=== PATIENT | female | born 1930 | race Caucasian/White ===

== ENCOUNTER 2018-02-13 23:21 | Emergency (ER) | payer MEDICARE, OTHER ==
[~2018-02-13] VITALS: Ht 162.6 cm; Wt 63.6 kg
[2018-02-14 00:37] LABS: BASOPHILS % (AUTO) 0.5 % (0-1); EOSINOPHILS # (AUTO) 0.2 X10'3 (0-0.9); EOSINOPHILS % (AUTO) 2.8 % (0-6); HEMATOCRIT 30.2 % (35.0-45.0); HEMOGLOBIN 9.8 g/dl (12.0-16.0); LYMPHOCYTES # (AUTO) 1.9 X10'3 (1.1-4.8); LYMPHOCYTES % (AUTO) 32.1 % (21-51); MEAN CORPUSCULAR HEMOGLOBIN 28.5 PG (27.0-31.0); MEAN CORPUSCULAR HGB CONC 32.4 % (33.0-36.5); MEAN CORPUSCULAR VOLUME 87.9 FL (78-98); MEAN PLATELET VOLUME 6.9 FL (7.4-10.4); MONOCYTES # (AUTO) 0.6 X10'3 (0-0.9); MONOCYTES % (AUTO) 10.8 % (2-12); NEUTROPHILS # (AUTO) 3.1 X10'3 (1.8-7.7); NEUTROPHILS % (AUTO) 53.8 % (42-75); PLATELET COUNT 316 X10'3 (140-440); RED BLOOD COUNT 3.43 X10'6 (4.20-5.60); RED CELL DISTRIBUTION WIDTH 17.3 % (11.5-14.5); WHITE BLOOD COUNT 5.8 X10'3 (4.5-11.0)
[2018-02-14 00:53] LABS: ALANINE AMINOTRANSFERASE 17 U/L (12-78); ALBUMIN 3.1 G/DL (3.4-5.0); ALBUMIN/GLOBULIN RATIO 0.7 (1.1-1.5); ALKALINE PHOSPHATASE 83 IU/L (46-116); ANION GAP 10 (8-16); ASPARTATE AMINO TRANSFERASE 22 U/L (10-37); BILIRUBIN,TOTAL 0.6 MG/DL (0.1-1.0); BLOOD UREA NITROGEN 38 MG/DL (7-18); BUN/CREATININE RATIO 31.1 (6.6-38.0); CALCIUM 8.7 MG/DL (8.5-10.1); CHLORIDE 101 MMOL/L (99-107); CREATININE 1.22 MG/DL (0.40-0.90); GLUCOSE 83 MG/DL (70-104); POTASSIUM 3.8 MMOL/L (3.5-5.1); SODIUM 137 MMOL/L (135-145); TOTAL CARBON DIOXIDE 26.4 MMOL/L (24-32); TOTAL PROTEIN 7.4 G/DL (6.4-8.2); eGFR 42 ML/MIN
[2018-02-14 01:01] LABS: MAGNESIUM 1.7 MG/DL (1.5-2.4)
[2018-02-14] MEDS ORDERED: furosemide 10 MG/1 ML 10ml inj IV ONE (01:35)
[2018-02-14 04:59] VITALS: BP 157/97
== END 2018-02-14 05:01 | disposition home or self-care (01) ==
LOC: EDBD 23:22 → ER 23:22
DX: E87.70 Fluid overload, unspecified (principal); J44.9 Chronic obstructive pulmonary disease, unspecified; I25.10 Atherosclerotic heart disease of native coronary artery without angina pectoris; I48.91 Unspecified atrial fibrillation; I10 Essential (primary) hypertension; E03.9 Hypothyroidism, unspecified; E78.00 Pure hypercholesterolemia, unspecified; F03.90 Unspecified dementia, unspecified severity, without behavioral disturbance, psychotic disturbance, mood disturbance, and anxiety; G89.29 Other chronic pain; Z88.0 Allergy status to penicillin; Z88.2 Allergy status to sulfonamides; Z98.890 Other specified postprocedural states
CPT/HCPCS: 36415; 71045; 80053; 83735; 83880; 84484; 85025; 93005; 96374; 99285; J1940

== ENCOUNTER 2018-02-23 09:38 | Inpatient (IN) | payer MEDICARE, OTHER ==
[~2018-02-23] VITALS: Ht 162.6 cm; Wt 95.0 kg
[2018-02-23] MEDS ORDERED: normal saline 1000ML IV soln IVB ONE (09:45)
[2018-02-23 10:40] LABS: CLARITY,URINE CLOUDY (Clear); COLOR,URINE YELLOW (Yellow); GLUCOSE, URINE NEGATIVE (Neg); KETONES,URINE NEGATIVE (Neg); LEUKOCYTE ESTERASE ,URINE MODERATE (Neg); NITRITES, URINE NEGATIVE (Neg); OCCULT BLOOD,URINE NEGATIVE (Neg); PH,URINE 6.5 (4.8-8.0); PROTEIN,URINE TRACE mg/dl (Neg); UA COLLECTION TYPE CLN CATCH MIDSTREAM; UROBILINOGEN,URINE 0.2 E.U/dL (0.2-1.0)
[2018-02-23 10:46] LABS: BACTERIA,URINE 3+ /HPF (Neg); MUCUS STRANDS FEW /LPF (Neg); SQUAMOUS EPITHELIAL CELL,UR FEW /LPF (FEW); TRANSITIONAL EPI CELLS,URINE FEW /HPF
[2018-02-23 10:47] LABS: RBC,URINE 0-2 /HPF (0-2); RENAL CELLS, URINE FEW /HPF; WBC,URINE 0-4 /HPF (0-4)
[2018-02-23 11:17] LABS: BASOPHILS % (AUTO) 0.3 % (0-1); EOSINOPHILS # (AUTO) 0.1 X10'3 (0-0.9); EOSINOPHILS % (AUTO) 1.4 % (0-6); HEMATOCRIT 44.4 % (35.0-45.0); HEMOGLOBIN 14.5 g/dl (12.0-16.0); LYMPHOCYTES # (AUTO) 1.6 X10'3 (1.1-4.8); LYMPHOCYTES % (AUTO) 17.6 % (21-51); MEAN CORPUSCULAR HEMOGLOBIN 28.2 PG (27.0-31.0); MEAN CORPUSCULAR HGB CONC 32.7 % (33.0-36.5); MEAN CORPUSCULAR VOLUME 86.1 FL (78-98); MEAN PLATELET VOLUME 6.6 FL (7.4-10.4); MONOCYTES # (AUTO) 0.8 X10'3 (0-0.9); NEUTROPHILS # (AUTO) 6.7 X10'3 (1.8-7.7); NEUTROPHILS % (AUTO) 71.7 % (42-75); PLATELET COUNT 380 X10'3 (140-440); RED BLOOD COUNT 5.16 X10'6 (4.20-5.60); RED CELL DISTRIBUTION WIDTH 16.3 % (11.5-14.5); WHITE BLOOD COUNT 9.3 X10'3 (4.5-11.0)
[2018-02-23 11:40] LABS: ALANINE AMINOTRANSFERASE 21 U/L (12-78); ALBUMIN 3.5 G/DL (3.4-5.0); ALBUMIN/GLOBULIN RATIO 0.7 (1.1-1.5); ALKALINE PHOSPHATASE 102 IU/L (46-116); ANION GAP 7 (8-16); ASPARTATE AMINO TRANSFERASE 35 U/L (10-37); BILIRUBIN,TOTAL 0.8 MG/DL (0.1-1.0); BLOOD UREA NITROGEN 44 MG/DL (7-18); BUN/CREATININE RATIO 29.7 (6.6-38.0); CHLORIDE 82 MMOL/L (99-107); CREATININE 1.48 MG/DL (0.40-0.90); GLUCOSE 105 MG/DL (70-104); SODIUM 126 MMOL/L (135-145); TOTAL CARBON DIOXIDE 37.2 MMOL/L (24-32); TOTAL PROTEIN 8.5 G/DL (6.4-8.2); eGFR 33 ML/MIN
[2018-02-23 11:42] LABS: POTASSIUM 2.8 MMOL/L (3.5-5.1)
[2018-02-23] MEDS ORDERED: CefTRIAXone/D5W-Rocephin 1gm 50 ML IV ONE (11:50)
[2018-02-23] MEDS ORDERED: magnesium 2GM in 50ml NS 50 ML IV STA (11:50)
[2018-02-23] MEDS ORDERED: magnesium 2GM in 50ml NS 50 ML IV ONE (11:55)
[2018-02-23] MEDS ORDERED: potassium 10mEq/100ml NS w/LIDOcaine (10mg/bag) IV ONE (12:45)
[2018-02-23] MEDS ORDERED: magnesium Cl slow-release 64mg tablet PO PRN (13:00)
[2018-02-23] MEDS ORDERED: magnesium hydroxide 30ml (MOM) UD suspension PO PRN (13:00)
[2018-02-23] MEDS ORDERED: potassium Cl 20 mEq SR tablet PO PRN (13:00)
[2018-02-23] MEDS ORDERED: magnesium 4gm in 100ml NS 100 ML IV PRN (13:00)
[2018-02-23] MEDS ORDERED: potassium Cl 40MEQ/NS 500ml 500 ML IV PRN ×2 (13:00)
[2018-02-23] MEDS ORDERED: mag hydrox/Alum hydrox/simeth 30ml oral suspension PO PRN (13:00)
[2018-02-23] MEDS ORDERED: bisacodyl 10mg suppository rectal RC PRN (13:00)
[2018-02-23] MEDS ORDERED: ondansetron/PF 4mg/2ml inj IV PRN (13:00)
[2018-02-23] MEDS ORDERED: magnesium 2GM in 50ml NS 50 ML IV PRN (13:00)
[2018-02-23] MEDS ORDERED: acetaminophen 325mg tablet PO PRN (13:00)
[2018-02-23] MEDS: levoFLOXACIN-Levaquin 500mg/D5 100 ML IV SCH (13:56)
[2018-02-23 14:08] LABS: CREATINE KINASE 91 U/L (26-192)
[2018-02-23] MEDS: potassium Cl 20mEq in NS 1,000 ML IV SCH (14:29)
[2018-02-23 15:18] LABS: INR 1.1 INR; PARTIAL THROMBOPLASTIN TIME 27 SECONDS (22-32); PROTHROMBIN TIME 11.3 SECONDS (9.0-12.0)
[2018-02-23] MEDS ORDERED: FURO-150 PO (16:12)
[2018-02-23] MEDS ORDERED: POTA10TA PO (16:14)
[2018-02-23] MEDS ORDERED: ISOS30TA9 PO (16:15)
[2018-02-23] MEDS ORDERED: LISI-604 PO (16:15)
[2018-02-23] MEDS ORDERED: LEVO112T5 PO (16:16)
[2018-02-23] MEDS ORDERED: FAMO20TA8 PO (16:17)
[2018-02-23] MEDS ORDERED: CLOP75TA35 PO (16:18)
[2018-02-23] MEDS ORDERED: METO-467 PO (16:18)
[2018-02-23] MEDS ORDERED: ASPI-611 PO (16:19)
[2018-02-23] MEDS ORDERED: ATOR80TA PO (16:20)
[2018-02-23] MEDS ORDERED: MEMA5TAB PO (16:21)
[2018-02-23 20:00] VITALS: BP_SYST 100; BP_SYST 118; BP_SYST 134; BP_DIAS 44; BP_DIAS 59; BP_DIAS 61
[2018-02-23 20:40] VITALS: BP 118/61
[2018-02-23] MEDS: docusate sod 100mg capsule PO SCH (21:15)
[2018-02-23] MEDS: HYDROcodone/acetaminophen 5mg/325mg tablet PO PRN (21:15)
[2018-02-23] MEDS: heparin, porcine 5000 units/ml vial SQ SCH (21:15)
[2018-02-24] VITALS (7 sets, daily range): BP systolic 118–203; BP diastolic 52–86
[2018-02-24] LABS: POTASSIUM 2.8 MMOL/L (3.5-5.1)
[2018-02-24] MEDS: temazepam 15mg capsule PO PRN ×2 (00:55→21:21)
[2018-02-24] MEDS: potassium Cl 20mEq in NS 1,000 ML IV SCH ×3 (00:55→16:16)
[2018-02-24] MEDS ORDERED: potassium Cl 40MEQ/NS 500ml 500 ML IV ONE (01:14)
[2018-02-24] MEDS: HYDROcodone/acetaminophen 5mg/325mg tablet PO PRN ×2 (04:57→23:36)
[2018-02-24 05:45] LABS: BASOPHILS % (AUTO) 0.4 % (0-1); EOSINOPHILS # (AUTO) 0.4 X10'3 (0-0.9); EOSINOPHILS % (AUTO) 4.6 % (0-6); HEMOGLOBIN 11.7 g/dl (12.0-16.0); LYMPHOCYTES # (AUTO) 1.6 X10'3 (1.1-4.8); LYMPHOCYTES % (AUTO) 16.3 % (21-51); MEAN CORPUSCULAR HEMOGLOBIN 28.8 PG (27.0-31.0); MEAN CORPUSCULAR HGB CONC 33.4 % (33.0-36.5); MEAN CORPUSCULAR VOLUME 86.1 FL (78-98); MEAN PLATELET VOLUME 6.9 FL (7.4-10.4); MONOCYTES # (AUTO) 1.1 X10'3 (0-0.9); MONOCYTES % (AUTO) 11.2 % (2-12); NEUTROPHILS # (AUTO) 6.5 X10'3 (1.8-7.7); NEUTROPHILS % (AUTO) 67.5 % (42-75); PLATELET COUNT 316 X10'3 (140-440); RED BLOOD COUNT 4.06 X10'6 (4.20-5.60); WHITE BLOOD COUNT 9.6 X10'3 (4.5-11.0)
[2018-02-24 05:48] LABS: ALBUMIN 2.6 G/DL (3.4-5.0); ANION GAP 4 (8-16); BLOOD UREA NITROGEN 28 MG/DL (7-18); BUN/CREATININE RATIO 24.8 (6.6-38.0); CALCIUM 7.9 MG/DL (8.5-10.1); CHLORIDE 96 MMOL/L (99-107); CREATININE 1.13 MG/DL (0.40-0.90); GLUCOSE 95 MG/DL (70-104); MAGNESIUM 1.8 MG/DL (1.5-2.4); POTASSIUM 3.4 MMOL/L (3.5-5.1); SODIUM 134 MMOL/L (135-145); TOTAL CARBON DIOXIDE 34.3 MMOL/L (24-32); eGFR 45 ML/MIN
[2018-02-24] MEDS: docusate sod 100mg capsule PO SCH ×2 (07:26→21:21)
[2018-02-24] MEDS: levoFLOXACIN-Levaquin 500mg/D5 100 ML IV SCH (07:26)
[2018-02-24] MEDS: potassium Cl 20 mEq SR tablet PO PRN ×3 (07:27→21:21)
[2018-02-24] MEDS: heparin, porcine 5000 units/ml vial SQ SCH ×2 (07:27→21:20)
[2018-02-24] MEDS: K and/or MAG REPLACEMENT MC SCH (08:00)
[2018-02-24] MEDS: aspirin 325mg tablet, delayed-release (Ecotrin) PO SCH (17:39)
[2018-02-24] MEDS ORDERED: metoprolol tartrate 50mg tablet PO PRN (19:05)
[2018-02-24] MEDS: lactobacillus rhamnosus 10,000 MMU CELLS/CAPSULE PO SCH (21:21)
[2018-02-25] VITALS: BP 150/71
[2018-02-25] MEDS: potassium Cl 20mEq in NS 1,000 ML IV SCH ×2 (00:42→14:06)
[2018-02-25 05:28] LABS: BASOPHILS % (AUTO) 0.5 % (0-1); EOSINOPHILS # (AUTO) 0.5 X10'3 (0-0.9); EOSINOPHILS % (AUTO) 6.1 % (0-6); HEMATOCRIT 35.5 % (35.0-45.0); HEMOGLOBIN 11.8 g/dl (12.0-16.0); LYMPHOCYTES # (AUTO) 1.7 X10'3 (1.1-4.8); LYMPHOCYTES % (AUTO) 19.9 % (21-51); MEAN CORPUSCULAR HEMOGLOBIN 28.7 PG (27.0-31.0); MEAN CORPUSCULAR HGB CONC 33.1 % (33.0-36.5); MEAN CORPUSCULAR VOLUME 86.5 FL (78-98); MEAN PLATELET VOLUME 7.1 FL (7.4-10.4); MONOCYTES % (AUTO) 11.9 % (2-12); NEUTROPHILS # (AUTO) 5.2 X10'3 (1.8-7.7); NEUTROPHILS % (AUTO) 61.6 % (42-75); PLATELET COUNT 287 X10'3 (140-440); RED CELL DISTRIBUTION WIDTH 16.9 % (11.5-14.5); WHITE BLOOD COUNT 8.5 X10'3 (4.5-11.0)
[2018-02-25 06:03] LABS: ALBUMIN 2.6 G/DL (3.4-5.0); ANION GAP 5 (8-16); BLOOD UREA NITROGEN 16 MG/DL (7-18); CALCIUM 8.4 MG/DL (8.5-10.1); CHLORIDE 101 MMOL/L (99-107); CREATININE 0.89 MG/DL (0.40-0.90); GLUCOSE 89 MG/DL (70-104); MAGNESIUM 1.4 MG/DL (1.5-2.4); SODIUM 137 MMOL/L (135-145); TOTAL CARBON DIOXIDE 30.6 MMOL/L (24-32); eGFR 60 ML/MIN
[2018-02-25 07:00] VITALS: BP 187/86
[2018-02-25] MEDS: K and/or MAG REPLACEMENT MC SCH (08:00)
[2018-02-25] MEDS: lactobacillus rhamnosus 10,000 MMU CELLS/CAPSULE PO SCH ×2 (08:48→21:32)
[2018-02-25] MEDS: docusate sod 100mg capsule PO SCH ×2 (08:48→21:32)
[2018-02-25] MEDS: aspirin 325mg tablet, delayed-release (Ecotrin) PO SCH (08:48)
[2018-02-25] MEDS: heparin, porcine 5000 units/ml vial SQ SCH ×2 (08:48→21:32)
[2018-02-25] MEDS: CefTRIAXone/D5W-Rocephin 1gm 50 ML IV SCH (09:44)
[2018-02-25 11:00] VITALS: BP_SYST 151; BP_SYST 172; BP_SYST 178; BP_SYST 179; BP_DIAS 52; BP_DIAS 75; BP_DIAS 76; BP_DIAS 77
[2018-02-25] MEDS ORDERED: levoFLOXACIN 500mg tablet PO SCH (11:00)
[2018-02-25] MEDS: metoprolol tartrate 50mg tablet PO SCH ×2 (16:12→21:32)
[2018-02-25] MEDS: hydrALAZINE 20mg/ml inj. IV PRN (16:30)
[2018-02-25] MEDS: sodium chloride 0.45% 1,000 ML IV SCH (16:33)
[2018-02-25 18:00] VITALS: BP 126/64
[2018-02-25 20:00] VITALS: BP_SYST 118; BP_SYST 126; BP_SYST 133; BP_DIAS 59; BP_DIAS 62; BP_DIAS 64
[2018-02-25] MEDS: temazepam 15mg capsule PO PRN (21:32)
[2018-02-25] MEDS: HYDROcodone/acetaminophen 5mg/325mg tablet PO PRN (21:34)
[2018-02-26] VITALS: BP 132/70
[2018-02-26] MEDS: sodium chloride 0.45% 1,000 ML IV SCH ×2 (05:41→21:25)
[2018-02-26 05:51] LABS: BASOPHILS # (AUTO) 0.1 X10'3 (0-0.2); BASOPHILS % (AUTO) 0.8 % (0-1); EOSINOPHILS # (AUTO) 0.3 X10'3 (0-0.9); EOSINOPHILS % (AUTO) 3.6 % (0-6); HEMATOCRIT 35.7 % (35.0-45.0); HEMOGLOBIN 11.8 g/dl (12.0-16.0); LYMPHOCYTES # (AUTO) 2.1 X10'3 (1.1-4.8); MEAN CORPUSCULAR HEMOGLOBIN 28.3 PG (27.0-31.0); MEAN PLATELET VOLUME 7.2 FL (7.4-10.4); MONOCYTES # (AUTO) 0.9 X10'3 (0-0.9); MONOCYTES % (AUTO) 10.7 % (2-12); NEUTROPHILS # (AUTO) 5.2 X10'3 (1.8-7.7); NEUTROPHILS % (AUTO) 60.9 % (42-75); PLATELET COUNT 299 X10'3 (140-440); RED BLOOD COUNT 4.15 X10'6 (4.20-5.60); RED CELL DISTRIBUTION WIDTH 16.5 % (11.5-14.5); WHITE BLOOD COUNT 8.6 X10'3 (4.5-11.0)
[2018-02-26 06:02] LABS: ALBUMIN 2.5 G/DL (3.4-5.0); ANION GAP 6 (8-16); BLOOD UREA NITROGEN 11 MG/DL (7-18); BUN/CREATININE RATIO 12.9 (6.6-38.0); CALCIUM 8.3 MG/DL (8.5-10.1); CHLORIDE 97 MMOL/L (99-107); CREATININE 0.85 MG/DL (0.40-0.90); GLUCOSE 90 MG/DL (70-104); MAGNESIUM 1.2 MG/DL (1.5-2.4); SODIUM 131 MMOL/L (135-145); eGFR 63 ML/MIN
[2018-02-26 07:35] VITALS: BP 165/74
[2018-02-26 08:00] VITALS: BP_SYST 144; BP_SYST 153; BP_SYST 159; BP_DIAS 58; BP_DIAS 61; BP_DIAS 75
[2018-02-26] MEDS: K and/or MAG REPLACEMENT MC SCH (08:00)
[2018-02-26] MEDS: aspirin 325mg tablet, delayed-release (Ecotrin) PO SCH (09:37)
[2018-02-26] MEDS: CefTRIAXone/D5W-Rocephin 1gm 50 ML IV SCH (09:37)
[2018-02-26] MEDS: metoprolol tartrate 50mg tablet PO SCH ×2 (09:37→21:26)
[2018-02-26] MEDS: lactobacillus rhamnosus 10,000 MMU CELLS/CAPSULE PO SCH ×2 (09:37→21:26)
[2018-02-26] MEDS: docusate sod 100mg capsule PO SCH ×2 (09:37→21:26)
[2018-02-26] MEDS: heparin, porcine 5000 units/ml vial SQ SCH ×2 (09:38→21:26)
[2018-02-26 12:52] VITALS: BP 135/52
[2018-02-26 18:00] VITALS: BP 133/52
[2018-02-26 20:00] VITALS: BP_SYST 132; BP_SYST 143; BP_SYST 158; BP_DIAS 60; BP_DIAS 63; BP_DIAS 85
[2018-02-26] MEDS ORDERED: potassium Cl 40MEQ/NS 500ml 500 ML IV PRN ×2 (23:20)
[2018-02-26] MEDS ORDERED: magnesium 2GM in 50ml NS 50 ML IV PRN (23:20)
[2018-02-26] MEDS ORDERED: potassium Cl 20 mEq SR tablet PO PRN ×2 (23:20)
[2018-02-26] MEDS ORDERED: magnesium 4gm in 100ml NS 100 ML IV PRN (23:20)
[2018-02-26] MEDS: magnesium Cl slow-release 64mg tablet PO PRN (23:57)
[2018-02-27] VITALS: BP 143/63
[2018-02-27 05:39] LABS: BASOPHILS % (AUTO) 0.5 % (0-1); EOSINOPHILS # (AUTO) 0.3 X10'3 (0-0.9); HEMATOCRIT 36.3 % (35.0-45.0); LYMPHOCYTES # (AUTO) 2.6 X10'3 (1.1-4.8); LYMPHOCYTES % (AUTO) 30.5 % (21-51); MEAN CORPUSCULAR HEMOGLOBIN 28.5 PG (27.0-31.0); MEAN CORPUSCULAR VOLUME 86.2 FL (78-98); MEAN PLATELET VOLUME 7.6 FL (7.4-10.4); MONOCYTES % (AUTO) 11.1 % (2-12); NEUTROPHILS # (AUTO) 4.6 X10'3 (1.8-7.7); NEUTROPHILS % (AUTO) 53.9 % (42-75); PLATELET COUNT 280 X10'3 (140-440); RED BLOOD COUNT 4.21 X10'6 (4.20-5.60); RED CELL DISTRIBUTION WIDTH 16.7 % (11.5-14.5); WHITE BLOOD COUNT 8.6 X10'3 (4.5-11.0)
[2018-02-27 06:05] LABS: ALBUMIN 2.5 G/DL (3.4-5.0); ANION GAP 7 (8-16); BLOOD UREA NITROGEN 15 MG/DL (7-18); BUN/CREATININE RATIO 17.2 (6.6-38.0); CALCIUM 8.1 MG/DL (8.5-10.1); CHLORIDE 97 MMOL/L (99-107); CREATININE 0.87 MG/DL (0.40-0.90); GLUCOSE 86 MG/DL (70-104); MAGNESIUM 1.4 MG/DL (1.5-2.4); POTASSIUM 4.2 MMOL/L (3.5-5.1); SODIUM 129 MMOL/L (135-145); eGFR 61 ML/MIN
[2018-02-27 07:00] VITALS: BP_SYST 126; BP_SYST 146; BP_SYST 151; BP_DIAS 63; BP_DIAS 64; BP_DIAS 68
[2018-02-27] MEDS: CefTRIAXone/D5W-Rocephin 1gm 50 ML IV SCH (08:33)
[2018-02-27] MEDS: lactobacillus rhamnosus 10,000 MMU CELLS/CAPSULE PO SCH ×2 (08:33→20:41)
[2018-02-27] MEDS: aspirin 325mg tablet, delayed-release (Ecotrin) PO SCH (08:33)
[2018-02-27] MEDS: metoprolol tartrate 50mg tablet PO SCH ×2 (08:33→20:41)
[2018-02-27] MEDS: heparin, porcine 5000 units/ml vial SQ SCH ×2 (08:33→20:41)
[2018-02-27] MEDS: docusate sod 100mg capsule PO SCH ×2 (08:33→20:41)
[2018-02-27] MEDS: K and/or MAG REPLACEMENT MC SCH (08:41)
[2018-02-27 11:49] VITALS: BP 117/46
[2018-02-27] MEDS: sodium chloride 0.45% 1,000 ML IV SCH (12:01)
[2018-02-27] MEDS ORDERED: magnesium Cl slow-release 64mg tablet PO PRN (14:35)
[2018-02-27] MEDS ORDERED: magnesium 2GM in 50ml NS 50 ML IV PRN (14:35)
[2018-02-27] MEDS ORDERED: magnesium 4gm in 100ml NS 100 ML IV PRN (14:35)
[2018-02-27 19:30] VITALS: BP_SYST 174; BP_SYST 176; BP_SYST 195; BP_DIAS 62; BP_DIAS 78; BP_DIAS 87
[2018-02-27] MEDS: magnesium Cl slow-release 64mg tablet PO PRN (20:46)
[2018-02-28] VITALS (9 sets, daily range): BP systolic 52–180; BP diastolic 23–86
[2018-02-28 05:41] LABS: BASOPHILS # (AUTO) 0.1 X10'3 (0-0.2); BASOPHILS % (AUTO) 0.9 % (0-1); EOSINOPHILS # (AUTO) 0.3 X10'3 (0-0.9); EOSINOPHILS % (AUTO) 4.2 % (0-6); HEMATOCRIT 33.3 % (35.0-45.0); HEMOGLOBIN 11.1 g/dl (12.0-16.0); LYMPHOCYTES % (AUTO) 28.5 % (21-51); MEAN CORPUSCULAR HEMOGLOBIN 28.4 PG (27.0-31.0); MEAN CORPUSCULAR HGB CONC 33.3 % (33.0-36.5); MEAN CORPUSCULAR VOLUME 85.4 FL (78-98); MEAN PLATELET VOLUME 7.3 FL (7.4-10.4); MONOCYTES # (AUTO) 0.9 X10'3 (0-0.9); MONOCYTES % (AUTO) 12.4 % (2-12); NEUTROPHILS # (AUTO) 3.8 X10'3 (1.8-7.7); PLATELET COUNT 276 X10'3 (140-440); RED BLOOD COUNT 3.89 X10'6 (4.20-5.60); RED CELL DISTRIBUTION WIDTH 16.4 % (11.5-14.5)
[2018-02-28 05:49] LABS: ALBUMIN 2.4 G/DL (3.4-5.0); ANION GAP 4 (8-16); BLOOD UREA NITROGEN 12 MG/DL (7-18); BUN/CREATININE RATIO 15.2 (6.6-38.0); CALCIUM 8.2 MG/DL (8.5-10.1); CHLORIDE 100 MMOL/L (99-107); CREATININE 0.79 MG/DL (0.40-0.90); GLUCOSE 91 MG/DL (70-104); MAGNESIUM 1.5 MG/DL (1.5-2.4); POTASSIUM 3.6 MMOL/L (3.5-5.1); SODIUM 132 MMOL/L (135-145); TOTAL CARBON DIOXIDE 27.6 MMOL/L (24-32); eGFR 69 ML/MIN
[2018-02-28] MEDS: K and/or MAG REPLACEMENT MC SCH (08:00)
[2018-02-28] MEDS: metoprolol tartrate 50mg tablet PO SCH ×2 (08:23→21:52)
[2018-02-28] MEDS: CefTRIAXone/D5W-Rocephin 1gm 50 ML IV SCH (08:23)
[2018-02-28] MEDS: heparin, porcine 5000 units/ml vial SQ SCH ×2 (08:23→20:00)
[2018-02-28] MEDS: docusate sod 100mg capsule PO SCH ×2 (08:23→20:00)
[2018-02-28] MEDS: aspirin 325mg tablet, delayed-release (Ecotrin) PO SCH (08:23)
[2018-02-28] MEDS: lactobacillus rhamnosus 10,000 MMU CELLS/CAPSULE PO SCH ×2 (08:23→21:52)
[2018-02-28] MEDS: amLODIPine 5mg tablet PO SCH (08:27)
[2018-02-28] MEDS: HYDROcodone/acetaminophen 5mg/325mg tablet PO PRN (21:54)
[2018-03-01] VITALS (26 sets, daily range): BP systolic 64–178; BP diastolic 51–82
[2018-03-01] MEDS ORDERED: normal saline 1000ml 1,000 ML IVB ONE (00:19)
[2018-03-01] MEDS ORDERED: albumin (human) 25% 100 ML IV solution IV ONE (00:20)
[2018-03-01] MEDS ORDERED: normal saline 250ml IV soln 250 ML IV ONE (00:20)
[2018-03-01] MEDS ORDERED: amiodarone/D5 360MG/200ML BAG 200 ML IV SCH (00:25)
[2018-03-01] MEDS ORDERED: amiodarone 150mg/dext, iso-os 100 ML IV ONE (00:25)
[2018-03-01 01:07] LABS: ALANINE AMINOTRANSFERASE 12 U/L (12-78); ALBUMIN 2.3 G/DL (3.4-5.0); ALBUMIN/GLOBULIN RATIO 0.6 (1.1-1.5); ALKALINE PHOSPHATASE 69 IU/L (46-116); ANION GAP 11 (8-16); ASPARTATE AMINO TRANSFERASE 20 U/L (10-37); BILIRUBIN,TOTAL 0.3 MG/DL (0.1-1.0); BLOOD UREA NITROGEN 16 MG/DL (7-18); BUN/CREATININE RATIO 14.7 (6.6-38.0); CALCIUM 7.9 MG/DL (8.5-10.1); CHLORIDE 101 MMOL/L (99-107); CREATININE 1.09 MG/DL (0.40-0.90); GLUCOSE 91 MG/DL (70-104); POTASSIUM 3.6 MMOL/L (3.5-5.1); SODIUM 135 MMOL/L (135-145); TOTAL CARBON DIOXIDE 22.6 MMOL/L (24-32); eGFR 47 ML/MIN
[2018-03-01 01:11] LABS: TROPONIN I < 0.04 NG/ML (0.0-0.05)
[2018-03-01] MEDS ORDERED: LORazepam 2 mg/ml vial IV ONE (02:55)
[2018-03-01 05:52] LABS: MAGNESIUM 1.5 MG/DL (1.5-2.4); POTASSIUM 3.2 MMOL/L (3.5-5.1)
[2018-03-01] MEDS: docusate sod 100mg capsule PO SCH ×2 (08:02→19:36)
[2018-03-01] MEDS: amLODIPine 5mg tablet PO SCH (08:02)
[2018-03-01] MEDS: lactobacillus rhamnosus 10,000 MMU CELLS/CAPSULE PO SCH ×2 (08:02→19:36)
[2018-03-01] MEDS: heparin, porcine 5000 units/ml vial SQ SCH ×2 (08:02→19:35)
[2018-03-01] MEDS: aspirin 325mg tablet, delayed-release (Ecotrin) PO SCH (08:03)
[2018-03-01] MEDS: K and/or MAG REPLACEMENT MC SCH (08:14)
[2018-03-01] MEDS: metoprolol tartrate 50mg tablet PO SCH ×2 (09:11→19:36)
[2018-03-01] MEDS: CefTRIAXone 2gm/D5W 50ml 50 ML IV SCH (16:09)
[2018-03-01] MEDS ORDERED: haloperidol 1mg tablet PO PRN (19:45)
[2018-03-01] MEDS: HYDROcodone/acetaminophen 5mg/325mg tablet PO PRN (23:54)
[2018-03-02] VITALS (9 sets, daily range): BP systolic 88–184; BP diastolic 56–84
[2018-03-02] MEDS: hydrALAZINE 20mg/ml inj. IV PRN (05:03)
[2018-03-02 05:39] LABS: MAGNESIUM 1.6 MG/DL (1.5-2.4)
[2018-03-02] MEDS: K and/or MAG REPLACEMENT MC SCH (08:00)
[2018-03-02] MEDS: aspirin 325mg tablet, delayed-release (Ecotrin) PO SCH (08:12)
[2018-03-02] MEDS: metoprolol tartrate 50mg tablet PO SCH ×2 (08:13→20:22)
[2018-03-02] MEDS: amLODIPine 5mg tablet PO SCH (08:13)
[2018-03-02] MEDS: docusate sod 100mg capsule PO SCH ×2 (08:13→20:18)
[2018-03-02] MEDS: heparin, porcine 5000 units/ml vial SQ SCH ×2 (08:13→20:19)
[2018-03-02] MEDS: lactobacillus rhamnosus 10,000 MMU CELLS/CAPSULE PO SCH ×2 (08:13→20:18)
[2018-03-02] MEDS: CefTRIAXone 2gm/D5W 50ml 50 ML IV SCH (08:14)
[2018-03-03 03:00] VITALS: BP 141/63
[2018-03-03 06:00] VITALS: BP 162/81
[2018-03-03] MEDS: K and/or MAG REPLACEMENT MC SCH (08:00)
[2018-03-03] MEDS: lactobacillus rhamnosus 10,000 MMU CELLS/CAPSULE PO SCH ×2 (08:17→20:34)
[2018-03-03] MEDS: metoprolol tartrate 50mg tablet PO SCH (08:17)
[2018-03-03] MEDS: CefTRIAXone 2gm/D5W 50ml 50 ML IV SCH (08:17)
[2018-03-03] MEDS: docusate sod 100mg capsule PO SCH ×2 (08:17→20:34)
[2018-03-03] MEDS: aspirin 325mg tablet, delayed-release (Ecotrin) PO SCH (08:17)
[2018-03-03] MEDS: heparin, porcine 5000 units/ml vial SQ SCH ×2 (08:20→20:35)
[2018-03-03 11:00] VITALS: BP 184/81
[2018-03-03 15:00] VITALS: BP 157/78
[2018-03-03 19:15] VITALS: BP 156/83
[2018-03-03] MEDS: temazepam 15mg capsule PO PRN (20:34)
[2018-03-03] MEDS: metoprolol tartrate 12.5mg (1/2 tablet) PO SCH (20:34)
[2018-03-03] MEDS: HYDROcodone/acetaminophen 5mg/325mg tablet PO PRN (20:40)
[2018-03-03 22:00] VITALS: BP 106/49
[2018-03-04 05:00] VITALS: BP 158/71
[2018-03-04] MEDS: K and/or MAG REPLACEMENT MC SCH (08:00)
[2018-03-04] MEDS: aspirin 325mg tablet, delayed-release (Ecotrin) PO SCH (09:02)
[2018-03-04] MEDS: docusate sod 100mg capsule PO SCH (09:02)
[2018-03-04] MEDS: lactobacillus rhamnosus 10,000 MMU CELLS/CAPSULE PO SCH (09:02)
[2018-03-04] MEDS: metoprolol tartrate 12.5mg (1/2 tablet) PO SCH (09:03)
[2018-03-04] MEDS: heparin, porcine 5000 units/ml vial SQ SCH (09:03)
[2018-03-04 10:00] VITALS: BP 133/97
== END 2018-03-04 15:44 | disposition home or self-care (01) | DRG 683 ==
LOC: ER 09:38 → ED HOLD 12:05 → SUR 3N 20:40 → ICU 2S 03-01 00:11 → PCU 3S 03-02 00:50 → ORTHO 4S 03-03 19:10
PROVIDERS: ADMIT Internal Medicine; ATTEND Internal Medicine
DX: N17.9 Acute kidney failure, unspecified (principal); E87.1 Hypo-osmolality and hyponatremia; E86.0 Dehydration; N39.0 Urinary tract infection, site not specified; E87.6 Hypokalemia; R62.7 Adult failure to thrive
CPT/HCPCS: 36415; 70450; 71045; 80048; 80053; 81001; 82550; 82948; 83605; 83735; 84132; 84443; 84484; 85025; 85610; 85730; 87040; 87070; 87077; 87088; 87186; 93005; 96360; 97110; 97116; 97162; 97530; 99285; A6213; A6258; J0282; J0360; J0696; J1644; J1956; J2060; J3480; J7030; P9047